=== PATIENT | female | born 1950 | race Caucasian/White ===

== ENCOUNTER 2017-03-07 17:00 | Inpatient (IN) | payer MEDICARE, OTHER ==
[~2017-03-07] VITALS: Ht 167.6 cm; Wt 72.6 kg
[2017-03-07] MEDS ORDERED: CHRONULAC30 ML PO (17:55)
[2017-03-07] MEDS ORDERED: BACLOFEN10 MG PO (17:55)
[2017-03-07] MEDS ORDERED: BUMEX 1 MG TAB1 MG PO (17:57)
[2017-03-07] MEDS ORDERED: KLONOPIN0.5 MG PO (17:58)
[2017-03-07] MEDS ORDERED: PROTONIX FOR OR40 MG PT (17:59)
[2017-03-07] MEDS ORDERED: LOVENOX40 MG/0.4 SC (17:59)
[2017-03-07] MEDS ORDERED: MIRALAX17 GM PO (18:00)
--- NOTE | 2017-03-07 18:00 | NUR ---
ADMIT TO [facility] FROM [facility]. PT IS SIMPSON X4. SPEECH CLEAR. FOLLOWS COMMANDS AND REQUESTS. TRACH IS CAPPED. SHE HAS A WEAK, NON PRODUCTIVE COUGH NOTED. SHE IS NPO. HAS PEG IN MIDDLE ABD WITH INTACT SKIN AROUND INSERTION SITE. HAS SUPRAPUBIC CATH TO MID-LOWER ABD. INSERTION SITE IS CLEAN AND NO S/S INFECTION NOTED TO SUPRAPUBIC CATH SITE. URINE IS CLOUDY. SHE DENIES PAIN. SCALP: BACK OF HEAD 5.5X10 CM CIRCULAR (JULIO OF) THICK NON STAGEABLE AREA. HAS HAIR IN IT. COCCYX: 9X3 CM STAGE III TO COCCYX WITH UNEVEN BORDERS. NO DRAINAGE NOTED. LEFT KNEE: LATERAL LEFT KNEE 0.5 CM NON STAGEABLE BLACK CAHTO
[2017-03-07] MEDS ORDERED: ARTIFICIAL TEA3.5 G2 EACH EYE (18:02)
[2017-03-07] MEDS ORDERED: ASPIRIN81 MG PO (18:03)
[2017-03-07] MEDS ORDERED: COPAXONE INJ20 MG/ML SQ (18:04)
[2017-03-07] MEDS ORDERED: COREG 3.1253.125 MG PO (18:06)
[2017-03-07] MEDS ORDERED: SEROQUEL50 MG PO (18:08)
[2017-03-07] MEDS ORDERED: GUAIFENESI100 MG/5 M PO (18:09)
[2017-03-07] MEDS ORDERED: LEXAPRO20 MG PO (18:10)
[2017-03-07] MEDS ORDERED: NYSTATIN ORAL SU5 ML PO (18:11)
[2017-03-07] MEDS ORDERED: CIPRO500 MG PO (18:12)
[2017-03-07 19:03] VITALS: BP 141/66; BMI 25.8
[2017-03-07 21:00] VITALS: BP 113/59
--- NOTE | 2017-03-07 21:15 | NUR ---
MARISELA NOT GIVEN DT NOT HAVING ANY.
--- NOTE | 2017-03-08 01:08 | NUR ---
RESTING IN BED WITH EYES CLOSED. NO S/S OF DISTRESS OBSERVED. HIGH FLOW OXYGEN AT 7L PER TRACH COLLAR. PEG TUBE CHECKED FOR PATENCY AND RUNNING AT 57CC/HR. CALL LIGHT IN REACH AND OVERBED TABLE IN REACH.
[2017-03-08 06:59] VITALS: Ht 167.6 cm; Wt 72.6 kg
--- NOTE | 2017-03-08 07:43 | NUR ---
Nutrition Note: Full nutrition assessment is in process intervention. Pt currently on Osmolite 1.0 @ 57 ml/hr. She is receiving Ever BID. Noted pt with stage III to coccyx. Will put order in to increase TF to Osmolite 1.0 @ 65 ml/hr. Water flushes 15 ml/hr. Continue Ever BID via PEG. Flush PEG with 60 ml water before and after bolus. RD following.
[2017-03-08 07:47] LABS: CALC OSMOLALITY 283 mosm/kg (275-300); CALCIUM 9.1 mg/dL (8.5-10.1); CARBON DIOXIDE 32.6 mmol/L (21.0-32.0); CHLORIDE - SERUM 101 mmol/L (98-107); CREATININE - SERUM 0.6 mg/dL (0.6-1.3); GLUCOSE 113 mg/dL (74-106); SODIUM 139 mmol/L (136-145); UREA NITROGEN 27 mg/dL (7-18); eGFR NON AFRICAN AMERICAN > 90 mL/min (90-120)
[2017-03-08 07:48] LABS: BASOPHILS 0.4 % (0-2); EOSINOPHILS 5.7 % (0-7); HEMATOCRIT 29.3 % (36.0-48.0); HEMOGLOBIN 9.1 g/dL (12-16); IMMATURE GRANULOCYTES 0.8 % (0-5); LYMPHOCYTES 36.7 % (15-50); MCH 29.4 pg (26.0-34.0); MCHC 31.1 g/dL (31.0-37.0); MCV 94.5 fL (80.0-100.0); MEAN PLATELET VOLUME 9.9 fL (7.4-10.4); MONOCYTES 9.2 % (2-11); NEUTROPHILS 47.2 % (40-80); PLATELET COUNT 336 10x3/uL (130-400); RDW 15.7 % (11.5-14.5); WBC 7.7 10x3/uL (4.8-10.8)
--- NOTE | 2017-03-08 08:00 | NUR ---
RESTING QUIETLY IN BED.CL IN REACH.
[2017-03-08 08:13] VITALS: BP 127/48
--- NOTE | 2017-03-08 08:15 | NUR ---
PT RESTING IN BED WITH EYES OPEN CALL LIGHT IN REACH WILL MONITER
--- NOTE | 2017-03-08 11:35 | NUR ---
Wound care consult: Pt has an unstageable pressure injury on occiput (right side) measuring 7cm x 7cm x black/brown escar. The escar is dry. Treatment prior to this admission was to apply hydrogel to site to moisturize and soften the escar. I recommend continuing with this treatment. Sacrum has 5cm x 7cm stage 3 pressure injury. The wound bed is pink and white with peeling periwound. There is a small to moderate serous drainage with no odor. Surrounding skin is red and does fletcher, but slowly. Pt states it is very tender. Prior treatment was medihoney. Recommend biosorb gelling dressing covered with tielle plus. Changing every other day. There is a blanchable red areas on ankles and a scabs on knees. Requested an air overlay mattress for pt's bed. She will need to be assisted with turning/repositioning q2h while in bed. And repositioned hourly when up in wheel chair. Wound care will continue to monitor.
--- NOTE | 2017-03-08 14:26 | NUR ---
PT RESTING IN BED WITH EYES OPEN CALL LIGHT IN REACH NO PROBLEMS WILL MONITER
--- NOTE | 2017-03-08 17:47 | NUR ---
CARE TEAM MEETING: PATIENT NEW TO UNIT AND WILL BE RA AT NEXT MEETING.
--- NOTE | 2017-03-08 18:27 | NUR ---
PT RESTING IN BED WITH EYES OPEN CALL LIGHT IN REACH NO PROBLEMS WILL MONITER
--- NOTE | 2017-03-08 19:50 | NUR ---
PT. IN BED WITH HOB UP TO RECEIVE TUBEFEEDING. PT. IS ALSO ON A FIRST STEP MATTRESS DUE TO HER SKIN CONDITION. ASSESSMENT COMPLETED. [facility] PRESENT AND IS GOING TO TEACH MYSELF AND A FEMALE FAMILY MEMBER ON HOW TO GIVE PT. ICE CHIPS AND THEN HAVE PT. TO COUGH. PROCESS COMPLETED AND PT. WAS ABLE TO TAKE THE ICE CHIPS WITHOUT ANY S/S ASPIRATION AND DID HAVE A PRODUCTIVE COUGH AFTER WORKING SEVERAL TIMES BEFORE SHE GOT ENOUGH STRENGTH TO COUGH HARD ENOUGH TO BRING SECRETIONS UP. CALL LIGHT REMAINS WITHIN REACH.
[2017-03-08 21:00] VITALS: BP 113/75
--- NOTE | 2017-03-08 23:16 | NUR ---
PT. IN BED WITH HOB UP 40 DEGREES FOR T.F., PT. LEANING TO THE LEFT WITH EYES CLOSED AND RESP. EVEN. PT. REMAINS ON A FIRST STEP MATTRESS FOR HER SKIN. SUPRAPUPIC CATHETER DRAINING TO BSD WITHOUT PROBLEMS. TF INFUSING WITHOUT ANY ALARMS. CALL LIGHT REMAINS WITHIN REACH.
--- NOTE | 2017-03-09 03:10 | NUR ---
PT. IN BED WITH HOB UP FOR TF. EYES CLOSED AND RESP. EVEN. TF INFUSING VIA PUMP WITHOUT ANY ALARMS. SUPRAPUBIC CATHETER DRAINING TO BSD WITHOUT ANY PROBLEMS. FIRST STEP MATTRESS ON WITHOUT ANY ALARMS. CALL LIGHT REMAINS WITHIN REACH.
--- NOTE | 2017-03-09 07:45 | NUR ---
LYING IN BED RESTING QUIETLY. NO S/SX OF RESPIRATORY DISTRESS. TRACH COLLAR CLEAN AND SECURE WITH MIST FLOWING. TF RUNNING 65ML/HR WITH 15ML/HR H2O OSMOLITE 1.0. CALL LIGHT WITHIN REACH, BED ALARM ON, SR X3. WILL CONTINUE TO MONITOR.
[2017-03-09 08:50] VITALS: BP 127/52
--- NOTE | 2017-03-09 10:29 | NUR ---
SITTING UP IN BED READING NEWSPAPER. DENIES ANY NEEDS OR PAIN. TRACH CAPPED. PERSONAL ITEMS WITHIN REACH. MABRY PATENT AND WITHOUT KINKS. CALL LIGHT WITHIN REACH, BED ALARM ON. WILL CONTINUE TO MONITOR
--- NOTE | 2017-03-09 14:03 | NUR ---
SITTING UP IN W/C VISITING WITH FAMILY. DENIES ANY PAIN OR NEEDS. W/C BRAKES LOCKED, CALL LIGHT WITHIN REACH, BOX ALARM ON, PERSONAL ITEMS WITHIN REACH. WILL CONTINUE TO MONITOR
--- NOTE | 2017-03-09 16:44 | NUR ---
PERFORMED SUPRAPUBIC CATH CARE, INCONTIENT CARE D/T SMALL BOWEL INCONTINENCE. CHANGED SACRUM DRESSING, CLEANSED WITH WOUND CARE CLEANSER PATTED DRY, APPLIED BIOSORB GELLING OVER WOUND BED AND COVERED WITH SECONDARY DRESSING TIELLE PLUS. APPLIED DRAIN GAUZE TO PEG SITE. CALL LIGHT WITHIN REACH, BED LOW, ALARM ON, PERSONAL ITEMS IN REACH. WILL CONTINUE TO MONITOR
--- NOTE | 2017-03-09 17:23 | NUR ---
SITTING UP IN BED VISITING FAMILY. DENIES ANY NEEDS OR PAIN. NO S/SX OF RESPIRATORY DISTRESS. CALL LIGHT WITHIN REACH, BED ALARM ON, PERSONAL ITEMS WITHIN REACH, BED LOW. WILL CONTINUE TO MONITOR
--- NOTE | 2017-03-09 17:56 | NUR ---
WASHED HAIR AND WOUND AREA WITH SOAP, RISED THOROUGLY H2O, APPLIED THIN LAYER OF HYDROGEL TO ESCHAR AREA. TOLERATED WELL. CALL LIGHT WITH IN REACH, BED LOW, ALARM ON. WILL CONTINUE TO MONITOR
--- NOTE | 2017-03-09 18:00 | NUR ---
VISITING WITH FAMILY.CL IN REACH.
--- NOTE | 2017-03-09 19:25 | NUR ---
PT. IN BED ON FIRST STEP MATTRESS. FEMALE FAMILY MEMBER PRESENT AND VISITING. ASSESSMENT COMPLETED. NO VOICED NEEDS AT THIS TIME AND SHE HAS HER CALL LIGHT WITHIN REACH.
[2017-03-09 21:37] VITALS: BP 119/63
--- NOTE | 2017-03-09 23:09 | NUR ---
PT. IN BED WITH HOB UP FOR TF AND HER EYES ARE CLOSED AND RESP. EVEN. PT. REMAINS ON FIRST STEP MATTRESS. MABRY TO BSD WITHOUT PROBLEMS. TF INFUSING VIA PUMP WITHOUT ANY ALARMS. CALL LIGHT REMAINS WITHIN REACH.
--- NOTE | 2017-03-10 03:08 | NUR ---
PT. IN BED WITH HOB UP AT LEAST 40 DEGREES SHE IS RECEIVING TF AT 65CC/HR VIA PUMP WITHOUT ANY ALARMS. EYES ARE CLOSED AND RESP. EVEN. MABRY TO BSD WITHOUT PROBLEMS. FIRST STEP MATTRESS FUNCTIONING WITHOUT ALARMS ALSO. CALL LIGHT WITHIN REACH.
[2017-03-10 05:58] LABS: BASOPHILS 0.1 % (0-2); EOSINOPHILS 2.5 % (0-7); HEMATOCRIT 28.6 % (36.0-48.0); IMMATURE GRANULOCYTES 0.4 % (0-5); LYMPHOCYTES 28.3 % (15-50); MCH 29.7 pg (26.0-34.0); MCHC 31.5 g/dL (31.0-37.0); MCV 94.4 fL (80.0-100.0); MEAN PLATELET VOLUME 9.4 fL (7.4-10.4); MONOCYTES 7.9 % (2-11); NEUTROPHILS 60.8 % (40-80); PLATELET COUNT 344 10x3/uL (130-400); RBC 3.03 10x6/uL (4.00-5.40); RDW 15.7 % (11.5-14.5); WBC 7.6 10x3/uL (4.8-10.8)
[2017-03-10 06:28] LABS: CALC OSMOLALITY 276 mosm/kg (275-300); CARBON DIOXIDE 33.8 mmol/L (21.0-32.0); CHLORIDE - SERUM 98 mmol/L (98-107); CREATININE - SERUM 0.6 mg/dL (0.6-1.3); GLUCOSE 130 mg/dL (74-106); POTASSIUM - SERUM 3.8 mmol/L (3.5-5.1); SODIUM 135 mmol/L (136-145); UREA NITROGEN 26 mg/dL (7-18); eGFR NON AFRICAN AMERICAN > 90 mL/min (90-120)
--- NOTE | 2017-03-10 07:40 | NUR ---
RESTING QUIETLY IN BED. CALL LIGHT IN REACH. BED IN LOWEST POSITION.
[2017-03-10 08:15] VITALS: BP 140/50
--- NOTE | 2017-03-10 10:02 | NUR ---
Nutrition Follow Up: Pt stated that she was doing okay. When asked if she would like to try bolus TF pt replied "that would be great." Noted pt still has ~500 ml TF currently in bag infusing. Spoke with nursing - pt is to finish current TF bag. Pt to start bolus TF in the morning. Nursing agreed. +BM 03/09/17. Wt stable. Labs reviewed. Meds noted including Bumex. Will put order in to d/c continuous TF on 03/10/17 after current bag is empty. Begin bolus TF on 03/11/17 with current schedule: 0800: 1.5 cans 1200: 2 cans 1600: 1.5 cans 2000: 1.5 cans Flush PEG with 30 ml before and after each bolus. Continue Ever BID with 60 ml flush before and after each bolus. If pt is unable to tolerate bolus feeds, d/c bolus and resume continuous TF @ 65 ml/hr. RD following.
--- NOTE | 2017-03-10 10:04 | NUR ---
PATIENT REMAINS IN CONTACT ISOLATION FOR URINE. MABRY CATH PATENT. DRAINING CLEAR YELLOW URINE. G TUBE FEEDING RUNNING AT 65CC/HR. OSOMOLITE. DIET CONSULT DONE. FEEDINGS TO BE CHANGED TO BOLUS STARTING TOMORROW.
--- NOTE | 2017-03-10 13:50 | NUR ---
PATIENT REMAINS IN CONTACT ISOLATION. VISITORS REMINDED ABOUT ISOLATION PRECAUSIONS.
--- NOTE | 2017-03-10 16:28 | NUR ---
PATIENT HELPED BACK IN BED WITH TOTAL ASST OF TWO USING A SLIDING BOARD. PATIENT REQUESTED BED MCALLISTER. SMALL BOWEL MOVEMENT. DEONNA CARE GIVEN. SHEETS ON BED CHANGED.
--- NOTE | 2017-03-10 16:52 | RHP ---
PATIENT: CONSTANTINO GUTHRIE MEDICAL RECORD: [id number] ACCOUNT: [id number] LOCATION:[facility]1109 : 46 ADMISSION DATE: 03/07/17 REHABILITATION HISTORY AND PHYSICAL EXAMINATION POST ADMISSION PHYSICIAN EXAMINATION DATE OF ADMISSION: 03/07/2017 ADMITTING DIAGNOSES: Critical illness myopathy HISTORY OF PRESENT ILLNESS: The patient is a 66-year-old female patient admitted to inpatient rehabilitation for critical illness myopathy. She was admitted to the hospital at [facility] with v fib, cardiac arrest, hypothermia, acute respiratory failure, hypoxia, sepsis and UTI. She had an estimated down time of 20 minutes with CPR. Cardiac catheterization failed to show overt coronary artery disease. Bronchoscopy did reveal aspiration of some chewing gum. On January 30, she went to the OR for trach and PEG placement. Postop in the ICU, her clinical course continued to improve. She was discharged to [facility] on February 01 for further vent weaning and care. Currently, she is awake and oriented, extubated to trach collar downsized to a #6 uncuffed Shiley trach, capped during the day and open with 28% O2 at night. Secondary to increased secretions and sleep apnea, she will require long-term trach. She failed a recent swallow eval, remains n.p.o. with continuous tube feeding and speech therapy for swallowing, strengthening, safety and dietary upgrades. Urine culture was positive for Pseudomonas and Enterococcus with more that 100,000 colony forming units. She remains on cefepime 2 grams IV q.12 hours since February 28. Previously, she was mostly in a wheelchair, but was able to stand and transfer on her own as well as ambulate a short distance around her home. Currently, she has relapsing and remitting MS, muscular atrophy with wasting, weakness proximal greater than distal and difficulty rising from bed to chair or transfers without max assist times 2. She will benefit from aggressive rehabilitation as she plans to discharge home with her family after this. COMORBIDITIES: Include sepsis, hypertension, heart failure, pneumonitis, respiratory failure, dysphagia, tracheostomy, hypothermia, status post v fib with cardiac arrest, shock liver, acute kidney injury, foreign body in the bronchus, coronary artery disease, status post trach and PEG placement, UTI, multiple sclerosis, muscle weakening, debility, aspiration, hypoxia, depression and asthma. PAST MEDICAL HISTORY: Prior to this was asthma, hypertension, incontinence of urine, MS, back injury, face and neck injury and recurrent UTI. PAST SURGICAL HISTORY: Includes a bladder suspension, hysterectomy, tonsillectomy and adenoidectomy, gastrostomy tube placed, tracheostomy and suprapubic catheter. ALLERGIES: No known drug allergies. CURRENT MEDICATIONS: Include Levaquin 500 mg daily, Protonix 40 mg daily, aspirin chewable 81 mg daily, Lovenox 40 mg subQ daily, Lexapro 20 mg daily, carvedilol 3.125 mg b.i.d., Tylenol liquid p.r.n., Seroquel 50 mg at bedtime, guaifenesin 10 cc q.4 hours p.r.n. cough, nystatin 5 cc q.i.d., Bumex 1 mg b.i.d., baclofen 10 mg t.i.d., lanolin ointment as needed, Copaxone 20 mg injection for her MS, clonazepam 0.5 mg b.i.d. and polyethylene glycol 17 grams HISTORY AND PHYSICAL [id number] CONSTANTINO GUTHRIE in 8 ounce of water daily. HABITS: No alcohol or tobacco use. FAMILY HISTORY: Noncontributory. SOCIAL HISTORY: The patient hopes to return back home with her family and get back to her prior level of functioning. At least, be able to get around in a wheelchair and transfer on her own. REVIEW OF SYSTEMS: GENERAL: Does complain of weakness. HEENT: She denies cold, cough, or congestion. CARDIOVASCULAR: Denies chest pain. PHYSICAL EXAMINATION: VITAL SIGNS: Stable, afebrile. GENERAL: A much older than stated age female, in no distress on exam. HEENT: Normocephalic and atraumatic. She does have a large ulcerative region to the back of her head, appears to be some type of pressure ulcer. LUNGS: Clear at this time. HEART: Regular rate and rhythm. ABDOMEN: Benign. EXTREMITIES: No clubbing, cyanosis, or edema. NEUROLOGIC: She is slow to mentate, but seems mostly intact. SKIN: She does have that pressure ulcer to the back of her head and also an eschar/pressure ulcer to her coccyx area. LABORATORY DATA: White count is 7.7, H&H of 9 and 29, and platelet count was noted to be 336. Her sodium is 139, potassium 4.0, BUN and creatinine of 27 and 0.6, and blood sugar is noted to be 113. 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 The patient has potential to make improvement. We instituted the following multidisciplinary therapies including, but not limited to, physical, occupational, respiratory, speech, nutritional services, prosthetics and orthotics. Given her complex condition and risk of medical complications, rehabilitative care cannot be offered at a lower level of care such as a long-term facility. PLAN: 1. Admit to [facility] rehab for intensive inpatient therapy to include the following disciplines: A. Physical therapy to improve gait, all transfer skills and bed mobility to a modified independent level. B. Occupational therapy to improve activities of daily living to a modified independent level. C. Case management to assist with discharge planning and placement options. D. Nutrition to assist with nutritional needs. E. Rehabilitation nursing to assist in monitoring the patient's underlying medical conditions and to assist with any type of bowel or bladder management. 2. The patient's current medication and medical care will be continued. 3. The patient will be placed on standard fall precautions. 4. The patient's estimated length of stay is approximately 10-14 days. HISTORY AND PHYSICAL [id number] CONSTANTINO GUTHRIE 5. Discuss this patient during care team staff meeting this week. TRANSINT:[id number] Voice Confirmation ID: [id number] DOCUMENT ID: [id number] KELSEY notes whether there has been none or any medical/functional change since admission: - See nursing initial assessment and notes for thorough skin assessment. KELSEY attests patient continues to be appropriate for IRF: - Continues to be appropriate. CRISTY FINK MD at 1652 CC: [id number] DICTATION DATE: 03/08/1731 PRODUCTION CORRUGATOR: 03/08/17 0952 ADM IN [facility] [address] [id number]
--- NOTE | 2017-03-10 19:20 | NUR ---
PT. IN BED WITH HOB UP AND IS VISITING WITH MULTIPLE FRIENDS/FAMILY. VISITORS REMINDED OF THE CONTACT ISOLATION PRECAUTIONS AND TO BE SURE AND SANITIZE THEIR HANDS UPON LEAVING THE ROOM. SON VERBALIZED UNDERSTANDING. ASSESSMENT COMPLETED. NO VOICED NEEDS. CALL LIGHT WITHIN REACH. NO ALARMS FROM FIRST STEP MATTRESS OR TF PUMP.
[2017-03-10 20:30] VITALS: BP 127/66
--- NOTE | 2017-03-10 23:10 | NUR ---
PT. IN BED WITH HOB UP AT LEAST 35 DEGREES FOR TF TO INFUSE VIA PUMP. PT. REMAINS ON A FIRST STEP MATTRESS AND NO ALARMS THIS SHIFT SO FAR. FEEDING PUMP ALSO WORKING WITHOUT ANY ALARMS. SUPRAPUBIC CATHETER DRAINING TO BSD WITHOUT PROBLEMS. PT'S EYES CLOSED AND RESP. DEEP AND EVEN. PT'S CALL LIGHT WITHIN REACH.
--- NOTE | 2017-03-11 03:00 | NUR ---
PT. IN BED WITH HOB UP FOR TF AT LEAST 35 DEGREES. KIRILL, RT HERE TO PERFORM DEEP SUCTION OF TRACH. KIRILL WAS SUCCESSFUL IN GETTING SECRETIONS OUT OF TRACH THAT PT. WASN'T ABLE TO COUGH UP. PT. RESTING AND HAS HER CALL LIGHT IS SHE NEEDS ANYTHING FURTHER. MABRY TO BSD WITHOUT PROBLEMS, TF INFUSING VIA PUMP WITHOUT ANY ALARMS AND FIRST STEP MATTRESS FUNCTIONING PROPERLY.
--- NOTE | 2017-03-11 08:02 | NUR ---
PATIENT REMAINS IN CONTACT ISOLATION FOR URINE. ALERT/ORIENT X4. PATIENT REMAINS NPO EXCEPT FOR ICE CHIPS. ON A FIRST STEP MATTRESS. CALL LIGHT WITHIN REACH. VOICES NO NEEDS AT THIS TIME.
[2017-03-11 08:36] VITALS: BP 112/57
--- NOTE | 2017-03-11 11:23 | NUR ---
PATIENT RESTING IN BED. VOICES NO NEEDS AT THIS TIME. CALL LIGHT WITHIN REACH.
--- NOTE | 2017-03-11 13:39 | NUR ---
UP WITH THERAPY AT THIS TIME. PEG FEEDING ARE BOLUS.UP FOR THERAPY. SUPRA PUBIC CATHETER PATENT AND DRAINIG GERARDO COLOR URINE TO CLOSED DRAINAGE SYSTEM. PU TO BACK OF HEAD WITH HARD ESCAR IS OPEN TO AIR.REMAINS IN ISOLATION D/T MDRO. TRACH INTACT WITH TRACH COLLAR PRESENT. REMAINS NPO.
--- NOTE | 2017-03-11 17:11 | NUR ---
G TUBE CHECKED FOR PLACEMENT. 5CC RESIDIUAL. BOLUS FEEDING GIVEN PER ORDER. PATIENT TOLERATED WELL.
[2017-03-11 19:00] VITALS: BP 97/42
--- NOTE | 2017-03-11 19:40 | NUR ---
PT NOTED LAYING IN BED ON HER RIGHT SIDE. ALERT AND ORIENTED X 3. RESTING IN A FIRST STEP MATTRESS. NOTED TO BE INC. OF A MED LOOSE BM. INC CARE GIVEN AND BED PADS CHANGED. BRIEF LEFT OFF TO ALLOW AIR TO SITE FOR THE NIGHT. SUPRA PUBIC CATHETER PATENT AND DRAINING TO A GRAVITY BAG. NECK PILLOW PLACED ON PT FOR COMFORT. FEET ELEVATED UP ON A PILLOW. VISITOR IN ROOM AT BEDSIDE. SR'S ARE UP X 3 IN BED. CALL LIGHT AND BEDSIDE TABLE ARE WITHIN EASY REACH.
--- NOTE | 2017-03-11 21:30 | NUR ---
PT IS RESTING IN BED WITH EYES OPEN. ASSISTED TO TURN AND REPOSITION. NO FURTHER NEEDS VOICED.
--- NOTE | 2017-03-11 23:07 | NUR ---
RESTING IN BED WITH EYES CLOSED.
--- NOTE | 2017-03-12 01:23 | NUR ---
RESTING IN BED WITH EYES CLOSED.
--- NOTE | 2017-03-12 02:30 | NUR ---
IN BED, EYES CLOSED. APPEARS COMFORTABLE.
--- NOTE | 2017-03-12 05:51 | NUR ---
PT RESTING IN BED WITH EYES OPEN. DENIES ANY NEEDS AT THIS TIME. TOLERATED MEDS THROUGH PEG TUBE WITHOUT DIFFICULTY. COUGHING UP SMALL AMOUNTS OF YELLOW SPUTUM. NO INCONTINENCE NOTED.
--- NOTE | 2017-03-12 08:00 | NUR ---
PATIENT REMAINS IN CONTACT ISOLATION, MDRO IN URINE. PATIENT HAS A CHRONIC MABRY CATH. DRAINING CLEAR YELLOW URINE. ON A FIRST STEP MATTRESS. NPO EXCEPT FOR ICE CHIPS. TRACH IN PLACE. PATIENT IS ALERT/ORIENT X4. USING CALL LIGHT FOR NEEDS. CALL LIGHT IN PLACE.
[2017-03-12 08:03] VITALS: BP 117/55
--- NOTE | 2017-03-12 10:15 | NUR ---
HYDROGEL APPLIED TO BACK OF PATIENTS HEAD.
--- NOTE | 2017-03-12 12:00 | NUR ---
PATIENT GIVEN BOLUS FEEDING PER G TUBE. 50CC RESIDUAL. TOLERATED FEEDING WELL
--- NOTE | 2017-03-12 14:00 | NUR ---
DRESSING TO SACRUM CHANGED. CLEANED WITH WOUND CLEANSOR. BIOSORB GELLING DRESSING APPLIED. SECONDARY DRESSING OF TIELLE PLUS APPLIED.
--- NOTE | 2017-03-12 16:43 | NUR ---
PATIENT HAS MULTIPLE VISITORS IN ROOM. ISOLATION PRECAUSIONS EXPLAINED TO VISITORS BY THIS NURSE.
--- NOTE | 2017-03-12 19:03 | NUR ---
PT RESTING IN BED WITH EYES OPEN. VISITING WITH FRIEND AT BEDSIDE. NO NEEDS VOICED. RESTING ON A 1ST STEP MATTRESS. CONTACT PRECAUTIONS OBSERVED. SR'S ARE UP X 3 IN BED. CALL LIGHT AND BEDSIDE TABLE ARE WITHIN EASY REACH.
[2017-03-12 19:17] VITALS: BP 119/65
--- NOTE | 2017-03-12 21:27 | NUR ---
PT RESTING IN BED WITH EYES OPEN. BED BATH DONE AND HAIR WASHED WITH NO RINSE SHOWER CAP. SMALL LOOSE BM NOTED. BED LINENS CHANGED. PT VERY THANKFUL.
--- NOTE | 2017-03-12 23:44 | NUR ---
RESTING IN BED WITH EYES CLOSED.
--- NOTE | 2017-03-13 00:40 | NUR ---
IN BED, EYES CLOSED. HOB UP 30 DEGREES, LYING ON AIR MATTRESS. MABRY CATH PATENT TO BSD BAG. NO DISTRESS EVIDENT.
--- NOTE | 2017-03-13 03:12 | NUR ---
RESTING IN BED WITH EYES CLOSED. NO ACUTE DISTRESS NOTED.
--- NOTE | 2017-03-13 05:48 | NUR ---
PT RESTING IN BED WITH EYES CLOSED. AWOKE EASILY TO VERBAL STIMULI. TOLERATED AM MEDS WITHOUT DIFFICULTY. NO NEEDS VOICED.
--- NOTE | 2017-03-13 08:15 | NUR ---
PT RESTING IN BED EYES CLOSED UNLABORED RESPIRATIONS NOTED WILL MONITER
[2017-03-13 09:00] VITALS: BP 130/54
--- NOTE | 2017-03-13 12:21 | NUR ---
Nutrition Follow Up: Pt stated that she was feeling better. She denied any N/V/abd pain. Pt is receiving Osmolite 1.0 - 6.5 cans/day. She is receiving Ever BID. +BM 03/12/17. Meds and labs reviewed. Rec continue current TF regimen. Rec continue Ever BID. RD following.
--- NOTE | 2017-03-13 16:29 | NUR ---
Wound care reassessment of unstageable pressure injury to right occiput. Escar is drying out and loosening around edges. Removed loose dried escar from edges. Upper edge shows bright red tissue under escar. Lower left edge has yellow slough . Nursing reports moderate drainage. Wound care will continue monitoring.
--- NOTE | 2017-03-13 18:09 | NUR ---
PT RESTING IN BED WITH EYES OPEN CALL LIGHT IN REACH WILL MONITER
--- NOTE | 2017-03-13 19:30 | NUR ---
PT. IN BED WITH HOB UP FOR COMFORT AND IS EATING ICE CHIPS SLOWLY. FEMALE FAMILY FRIEND PRESENT VISITING. PT. REMAINS ON FIRST STEP MATTRESS. SUPRAPUPIC CATHETER TO BSD WITHOUT PROBLEMS. CALL LIGHT WITHIN REACH FOR NEEDS.
[2017-03-13 20:34] VITALS: BP 121/57
--- NOTE | 2017-03-13 21:14 | NUR ---
PT IS RESTING IN BED VISITING WITH A FRIEND. ALERT AND ORIENTED X 3. DENIES ACUTE DISCOMFORT AT THIS TIME. VSS. SMALL AMOUNT OF SEROUS DRAINAGE NOTED FROM PARTIALLY DEBRIDED SCALP. PT DENIES DISCOMFORT. PT RESTING ON A 1ST STEP MATTRESS. TRACH IS INTACT. DRESSING IS CDI. PEG TUBE FEEDING DONE AND MEDS GIVEN WITHOUT DIFFICULTY. DRESSING IS CDI. SUPRAPUBIC CATH IS INTACT AND DRAINING TO A GRAVITY BAG. CONTACT PRECAUTIONS OBSERVED. SR'S ARE UP X 3 IN BED. CALL LIGHT AND BEDSIDE TABLE ARE WITHIN EASY REACH.
--- NOTE | 2017-03-14 00:06 | NUR ---
RESTING IN BED WITH EYES CLOSED.
--- NOTE | 2017-03-14 02:46 | NUR ---
RESTING IN BED WITH EYES CLOSED.
--- NOTE | 2017-03-14 08:00 | NUR ---
PATIENT REMAINS IN CONTACT ISOLATION FOR MDRO IN URINE. HAS A SUPPER PUBIC CATH. ALERT/ORIENT X4. FIRST STEP MATTRESS ON BED. CALL LIGHT WITHIN REACH. USING CALL LIGHT FOR NEEDS
[2017-03-14 08:21] VITALS: BP 135/53
--- NOTE | 2017-03-14 09:56 | NUR ---
FAMILY IN VISITING WITH PATIENT. TOLD ABOUT ISOLATION PRECAUSIONS BY THIS NURSE. FAMILY CHOICES NOT TO FOLLOW ISOLATION PRECAUSIONS.
--- NOTE | 2017-03-14 12:00 | NUR ---
G TUBE FEEDING OF OSMOLITE 1 KYLAH TWO CANS DONE. G TUBE CHEKED FOR PLACEMENT. NO RESIDUAL. PATIENT TOLERATED FEEDING WELL.
--- NOTE | 2017-03-14 15:07 | NUR ---
PATIENT SITTING UP IN WHEELCHAIR AFTER THERAPY. BACK OF HEAD CLEANED WITH WOUND CHEMICAL PRODUCTION TECHNICIAN. HYDROGEL APPLIED
--- NOTE | 2017-03-14 17:55 | NUR ---
SITTING UP EATING SUPPER. DENIES NEEDS. BED IN LOWEST POSITION.
--- NOTE | 2017-03-14 19:21 | NUR ---
PT. IN BED WITH HOB UP FOR COMFORT AND IS VISITING WITH FEMALE VISITOR. PT. STILL ON FIRST STEP AIR MATTRESS, SUPRAPUBIC CATHETER TO BSD WITHOUT PROBLEMS AND TRACH SITE WITH DRESSING AND CAPPED SO THAT PT. CAN SPEAK. CALL LIGHT WITHIN REACH.
--- NOTE | 2017-03-14 20:05 | NUR ---
REST IN BED AND LOOK AT GRANDSON'S PICTURE IN PHONE.
[2017-03-14 21:45] VITALS: BP 107/71
--- NOTE | 2017-03-15 04:08 | NUR ---
REST QUIETLY IN BED,EYE CLOSE, CALL LIGHT IN REACH.
[2017-03-15 06:15] LABS: BASOPHILS 0.2 % (0-2); EOSINOPHILS 0.9 % (0-7); HEMATOCRIT 29.5 % (36.0-48.0); HEMOGLOBIN 9.2 g/dL (12-16); IMMATURE GRANULOCYTES 0.4 % (0-5); LYMPHOCYTES 23.9 % (15-50); MCH 29.5 pg (26.0-34.0); MCHC 31.2 g/dL (31.0-37.0); MCV 94.6 fL (80.0-100.0); MEAN PLATELET VOLUME 9.8 fL (7.4-10.4); MONOCYTES 8.3 % (2-11); NEUTROPHILS 66.3 % (40-80); PLATELET COUNT 386 10x3/uL (130-400); RBC 3.12 10x6/uL (4.00-5.40); RDW 15.5 % (11.5-14.5); WBC 11.9 10x3/uL (4.8-10.8)
[2017-03-15 06:39] LABS: CALC OSMOLALITY 274 mosm/kg (275-300); CALCIUM 8.9 mg/dL (8.5-10.1); CARBON DIOXIDE 29.5 mmol/L (21.0-32.0); CHLORIDE - SERUM 98 mmol/L (98-107); CREATININE - SERUM 0.6 mg/dL (0.6-1.3); GLUCOSE 112 mg/dL (74-106); POTASSIUM - SERUM 3.8 mmol/L (3.5-5.1); SODIUM 135 mmol/L (136-145); UREA NITROGEN 23 mg/dL (7-18); eGFR NON AFRICAN AMERICAN > 90 mL/min (90-120)
--- NOTE | 2017-03-15 08:00 | NUR ---
SITTING UP IN BED.CL IN REACH.
[2017-03-15 08:17] VITALS: BP 118/48
--- NOTE | 2017-03-15 12:43 | NUR ---
G TUBE FEEDING GIVEN. PATIENT TOLERATED WELL.
--- NOTE | 2017-03-15 15:45 | NUR ---
PATIENT WORKING WITH SPEECH THERAPIST IN ROOM. HELPED TO BED BY PHYSICAL THERAPIST AND SPEECH THERAPIST. PATIENT HAD A LARGE LOOSE BOWEL MOVEMENT. THIS NURSE WITH ASST FROM ANOTHER NURSE WENT INTO ROOM AND CLEANED PATIENT. DEONNA CARE GIVEN. SUPRA PUBIC CATH REMAINS IN PLACE. THIS NUSE STAYED IN ROOM TO CLEAN ROOM UP. MULTIPLE CUPS OF FLUID IN ROOM. PATIENT IS NPO EXCEPT FOR NECTAR THICK LIQUIDS WITH SPEECH THERAPIST OR SUPERVISION FROM OTHER STAFF MEMBERS OR WHEN FAMILY IS IN ROOM TO WATCH PATIENT SWALLOW. THIS NURSE HAS CLEANED UP FOOD CONTAINORS IN ROOM X3. THIS NURSE ASKED PATIENTS FAMILY TO PLEASE REMOVE CONTAINERS WHEN THEY ARE DONE WITH THEM.
--- NOTE | 2017-03-15 19:30 | NUR ---
IN BED ON AIR OVERLAY. REMAINS ON CONTACT ISOLATION FOR MDRO IN URINE. SUPRAPUBIC CATH IS PATENT TO BSD BAG. FAMALE FAMILY MEMBER GOWNED IN ROOM. DENIES NEEDS AT PRESENT.
--- NOTE | 2017-03-15 20:20 | NUR ---
REMAINS IN BED, HOB UP 45 DEGREES. DENIES NEEDS.
[2017-03-15 22:10] VITALS: BP 116/46
--- NOTE | 2017-03-15 22:10 | NUR ---
AT 2135 PATIENT'S PEG RESIDUAL WAS 140ML. WILL DEFER SCHEDULED TF UNTIL 2300. CLEANSED PATIENT FROM SMALL AMOUNT PUDDING CONSISTENCY STOOL IN BLUE AIR PAD, AND DURING CLEANSING SHE BEGAN TO DEFECATE AGAIN. ON COMPLETION OF BM CLEANSED PATIENT OF TOTAL MODERATE AMOUNT OF BM AND REPLACE BLUE AIR PAD. GAVE PATIENT HS MEDS CRUSHED IN WATER AND STARTED TRACH COLLAR AT 28% MOISTURIZED AIR (8L AIR FLOW RATE). CONTINUES IN PARTIAL RIGHT SIDELYING POSITION. BUTTOCKS/COCCYX DRESSING REMAINS C/D/I.
--- NOTE | 2017-03-16 00:05 | NUR ---
RESTING QUIETLY IN BED, IN PARTIAL LEFT SIDELYING POSITION, HOB UP 45 DEGREES.
--- NOTE | 2017-03-16 02:30 | NUR ---
CONTINUES IN BED, EYES CLOSED. RESTING QUIETLY.
--- NOTE | 2017-03-16 06:00 | NUR ---
REMAINS IN BED, RESTING WITH EYES CLOSED. RESPIRATIONS UNLABORED.
--- NOTE | 2017-03-16 07:47 | NUR ---
SITTING UP IN BED LOOKING A NEWSPAPER. ALERT AND ORIENTED X3. DENIES ANY PAIN OR NEEDS. NO S/SX OF RESPIRATORY DISTRESS. CALL LIGHT AND PERSONAL ITEMS WITHIN REACH, BED ALARM ON, BED LOW, SR X3. WILL CONTINUE TO MONITOR
[2017-03-16 07:51] VITALS: BP 125/49
--- NOTE | 2017-03-16 07:54 | NUR ---
RESTING QUIETLY IN BED. CALL LIGHT IN REACH. BED IN LOWEST POSITION.
--- NOTE | 2017-03-16 09:59 | NUR ---
IN THERAPY GYM WITH OCCUPATIONAL AND PHYSICAL THERAPY. NO S/SX OF ACUTE DISTRESS. WILL CONTINUE TO MONITOR
--- NOTE | 2017-03-16 13:36 | NUR ---
SITTING UP IN W/C VISITING WITH FAMILY. DENIES ANY NEEDS OR PAIN. CALL LIGHT AND PERSONAL ITEMS WITHIN REACH, W/C BRAKES LOCKED. WILL CONTINUE TO MONITOR
--- NOTE | 2017-03-16 16:23 | NUR ---
REASSESSMENT SACRAL STAGE 3 PRESSURE INJURY: MEASURES 6.5CM X 8CM X 0.5CM HAVE CHANGED TO AQUACEL EXTRA D/T WOUND BED TOO MOIST. DRESSINGS WILL BE CHANGED DAILY NOW. PERIWOUND CONTINUES TO YOHAN AND IS RED. ON LEFT TROCHANTER A RED 2.5CM X 3CM RED AREA IS NOTED. IT BLANCHES. COVERED THIS RADHA DUODERM LITE AND INSTRUCTED PT TO REPOSITION HERSELF Q 2 HOURS TO DECREASE RISK OF BREAKDOWN. SHE VOICED UNDERSTANDING. WOUND CARE WILL CONTINUE TO MONITOR.
--- NOTE | 2017-03-16 17:32 | NUR ---
SITTING UP IN BED VISITING WITH FAMILY. DENIES ANY NEEDS OR PAIN. CALL LIGHT WITHIN REACH, BED ALARM ON, BED LOW. WILL CONTINUE TO MONITOR
--- NOTE | 2017-03-16 19:00 | NUR ---
IN BED. AWAKE. VISITOR AT BEDSIDE.
--- NOTE | 2017-03-16 20:20 | NUR ---
REMAINS IN BED, AWAKE. FAMILY FRIEND/EMPLOYEE VISITING AT BEDSIDE. VS AER STABLE.
--- NOTE | 2017-03-16 21:35 | NUR ---
IN BED, WAS PARTIALLY TURNED TO LEFT SIDE BY Srinivas DOHERTY LPN. CONTINUES ON AIR MATTRESS OVERLAY FOR PRESSURE RELIEF.
[2017-03-16 23:05] VITALS: BP 158/68
--- NOTE | 2017-03-16 23:05 | NUR ---
ASSESSMENT COMPLETE. HS MEDS AND TUBE FEEDING GIVEN. TOLD PATIENT I WILL LOWER HER HOB FROM 45 DEGREES AND TURN HER TO HER SIDE IN 60-90 MINUTES WE WANT HER STOMACH TO EMPTY WITHOUT RISK OF REFLUX. SAYS SHE UNDERSTANDS.
--- NOTE | 2017-03-17 00:15 | NUR ---
RESTING QUIETLY IN BED, HOB UP 45 DEGREES. APPEARS COMFORTABLE.
--- NOTE | 2017-03-17 02:15 | NUR ---
PATIENT WAS TURNED TO PARTIAL LEFT SIDELYING POSITION FOR PRESSURE RELIEF TO COCCYX. CONTINUES ON 1ST STEP AIR OVERLAY.
--- NOTE | 2017-03-17 04:40 | NUR ---
RESTING IN BED, EYES CLOSED. RESPIRATIONS UNLABORED.
--- NOTE | 2017-03-17 05:40 | NUR ---
CHECKED PEG RESIDUAL. FOUND IT TO BE 0 ML. EMPTIED 1200ML FROM CATHETER DRAINAGE BAG.
[2017-03-17 05:59] LABS: BASOPHILS 0.2 % (0-2); EOSINOPHILS 4.7 % (0-7); HEMATOCRIT 28.3 % (36.0-48.0); HEMOGLOBIN 8.8 g/dL (12-16); IMMATURE GRANULOCYTES 0.9 % (0-5); LYMPHOCYTES 37.5 % (15-50); MCH 29.1 pg (26.0-34.0); MCHC 31.1 g/dL (31.0-37.0); MCV 93.7 fL (80.0-100.0); MEAN PLATELET VOLUME 9.4 fL (7.4-10.4); MONOCYTES 10.1 % (2-11); NEUTROPHILS 46.6 % (40-80); PLATELET COUNT 383 10x3/uL (130-400); RBC 3.02 10x6/uL (4.00-5.40); RDW 15.4 % (11.5-14.5)
[2017-03-17 06:02] LABS: WBC 8.2 10x3/uL (4.8-10.8)
[2017-03-17 06:16] LABS: CALC OSMOLALITY 282 mosm/kg (275-300); CALCIUM 9.3 mg/dL (8.5-10.1); CARBON DIOXIDE 35.9 mmol/L (21.0-32.0); CHLORIDE - SERUM 98 mmol/L (98-107); CREATININE - SERUM 0.5 mg/dL (0.6-1.3); GLUCOSE 89 mg/dL (74-106); POTASSIUM - SERUM 4.1 mmol/L (3.5-5.1); SODIUM 138 mmol/L (136-145); eGFR NON AFRICAN AMERICAN > 90 mL/min (90-120)
[2017-03-17 06:26] LABS: UREA NITROGEN 34 mg/dL (7-18)
[2017-03-17 08:52] VITALS: BP 110/46
--- NOTE | 2017-03-17 11:00 | NUR ---
UP IN WC.TALITA THERAPY.
--- NOTE | 2017-03-17 12:00 | NUR ---
IN WC.UNABLE TO GIVE BOLUS FEEDING DUE TO 60 PLUS CC RESIDUAL.WILL RECHECK.
--- NOTE | 2017-03-17 12:50 | NUR ---
PATIENT ADMITTED TO REHAB FROM AN [facility]. DISCHARGE PLANS ARE FOR HER TO GO TO [facility]. WILL CONTINUE TO FOLLOW WITH PATIENT AND WILL ASSIST FAMILY WITH DISCHARGE NEEDS.
--- NOTE | 2017-03-17 13:50 | NUR ---
Nutrition Follow Up: Chart reviewed. Pt is tolerating current TF regimen of Osmolite 1.0 - 6.5 cans/d. She is receiving Ever BID to promote wound healing. +BM 03/16/17. Labs reviewed. Meds noted including Bumex. Rec continue current TF regimen. Rec continue Ever BID. Rec MV supplement. RD following.
--- NOTE | 2017-03-17 16:00 | NUR ---
FAMILY VISITING.DENIES NEEDS.
--- NOTE | 2017-03-17 16:30 | NUR ---
UNABLE TO GIVE BOLUS DUE TO RESIDUALS.WILL RECHECK .
--- NOTE | 2017-03-17 19:00 | NUR ---
PATIENT WAS BATHED AND SACRAL DRESSING AND SCRUB TOP CHANGED AFTER BM INCONTINENCE IN BED.
[2017-03-17 21:16] VITALS: BP 131/51
--- NOTE | 2017-03-17 21:35 | NUR ---
REMAINS IN BED, AWAKE. FAMILY VISITOR AT BEDSIDE.
--- NOTE | 2017-03-17 23:10 | NUR ---
ASSESSMENT, MEDS AND TUBE FEEDING COMPLETE. DENIES NEEDS.
--- NOTE | 2017-03-18 00:35 | NUR ---
PATIENT'S LINENS WERE CHANGED AROUND 2339. PATIENT NOW RESTING IN BED, EYES CLOSED HOB UP 45 DEGREES WITH PATIENT TURNED PARTIALLY TO RIGHT SIDE.
--- NOTE | 2017-03-18 02:35 | NUR ---
IN BED, EYES CLOSED. NO DISTRESS EVIDENT. HOB REMAINS UP 45 DEGREES.
--- NOTE | 2017-03-18 04:30 | NUR ---
CONTINUES IN BED, EYES CLOSED. RESTING QUIETLY.
--- NOTE | 2017-03-18 06:50 | NUR ---
MEDS AND TF COMPLETE. SUPRAPUBIC CATH CARE COMPLETE. EMPTIED 1000ML FROM CATHETER BAG.
--- NOTE | 2017-03-18 08:00 | NUR ---
POSITIONED IN BED FOR COMFORT.CL IN REACH.
[2017-03-18 09:20] VITALS: BP 106/33
--- NOTE | 2017-03-18 12:00 | NUR ---
BED BATH GIVEN AND UP OOB TO WC .CL IN REACH.
--- NOTE | 2017-03-18 16:00 | NUR ---
REMAINS UP IN WC.CL IN REACH.
--- NOTE | 2017-03-18 19:40 | NUR ---
PT. IN BED WITH HOB UP AT LEAST 35 DEGREES ALMOST ALL THE TIME THAT IS HER PREFERENCE. PT. REMAINS ON FIRST STEP MATTRESS FOR HER SKIN CONDITION. ASSESSMENT COMPLETED. NO VOICED NEEDS AT THIS TIME. SUPRAPUBIC CATHETER DRAINING INTO BSD WITHOUT PROBLEMS, PEG TUBE CLAMPED UNTIL MEDS/FEEDINGS DONE AND TRACH SITE PLACED ON TRACH COLLAR TO RECEIVE MOISTENED O2 FOR THE NIGHT. CALL LIGHT WITHIN REACH.
[2017-03-18 20:35] VITALS: BP 112/68
--- NOTE | 2017-03-18 23:25 | NUR ---
PT. IN BED WITH HOB UP FOR COMFORT AND CONTNUES TO WEAR HER NECK SUPPORT PILLOW BUT STILL LEANS TOWARDS THE LEFT. EYES CLOSED AND RESP. EVEN. CATHETER TO BSD WITHOUT PROBLEMS, TRACH COLLAR ON AND HER CALL LIGHT REMAINS WITHIN HER REACH.
--- NOTE | 2017-03-19 03:12 | NUR ---
PT. IN BED WITH HOB UP AT LEAST 35 DEGREES SHE LIKES IT. EYES CLOSED AND RESP. EVEN. SUPRAPUBIC CATHETER DRAINING INTO BSD WITHOUT PROBLEMS. TRACH REMAINS CONNECTED TO TRACH COLLAR TO RECEIVE MOISTENED AIR. CALL LIGHT REMAINS WITHIN REACH.
[2017-03-19 10:32] VITALS: BP 130/45
--- NOTE | 2017-03-19 19:25 | NUR ---
PT. IN BED WITH HOB UP FOR COMFORT AND VISITING WITH FRIEND. SUPRAPUBIC CATHETER DRAINING TO BSD WITHOUT PROBLEMS. PEG TUBE DRESSING C/D/I. TRACH SITE CLEAN WITH DRESSING. ASSESSMENT COMPLETED. NO VOICED NEEDS AT THIS TIME AND HER CALL LIGHT IS WITHIN REACH.
[2017-03-19 19:30] VITALS: BP 122/56
--- NOTE | 2017-03-19 23:18 | NUR ---
PT. IN BED WITH HOB UP FOR COMFORT WITH EYES CLOSED AND RESP. EVEN. TRACH COLLAR ON AND NO S/S DISTRESS OBSERVED. SUPRAPUBIC CATHETER DRAINING TO BSD WITHOUT PROBLEMS. PT. REMAINS ON FIRST STEP MATTRESS FOR HER SKIN CONDITION. CALL LIGHT REMAINS WITHIN REACH.
--- NOTE | 2017-03-20 03:15 | NUR ---
PT. IN BED WITH HOB UP FOR COMFORT WITH EYES CLOSED AND RESP. EVEN. TRACH COLLAR REMAINS ON, SUPRAPUBIC CATHETER DRAINING INTO BSD WITHOUT PROBLEMS. FIRST STEP MATTRESS FUNCTIONING WITHOUT ANY ALARMS. CALL LIGHT WITHIN REACH.
[2017-03-20 06:03] LABS: BASOPHILS 0.3 % (0-2); EOSINOPHILS 3.6 % (0-7); HEMATOCRIT 29.3 % (36.0-48.0); IMMATURE GRANULOCYTES 1.1 % (0-5); LYMPHOCYTES 25.3 % (15-50); MCH 28.5 pg (26.0-34.0); MCHC 30.7 g/dL (31.0-37.0); MCV 92.7 fL (80.0-100.0); MEAN PLATELET VOLUME 9.8 fL (7.4-10.4); MONOCYTES 7.9 % (2-11); NEUTROPHILS 61.8 % (40-80); PLATELET COUNT 400 10x3/uL (130-400); RBC 3.16 10x6/uL (4.00-5.40); WBC 11.4 10x3/uL (4.8-10.8)
[2017-03-20 06:20] LABS: CALC OSMOLALITY 276 mosm/kg (275-300); CALCIUM 8.9 mg/dL (8.5-10.1); CARBON DIOXIDE 31.8 mmol/L (21.0-32.0); CHLORIDE - SERUM 96 mmol/L (98-107); CREATININE - SERUM 0.7 mg/dL (0.6-1.3); GLUCOSE 105 mg/dL (74-106); POTASSIUM - SERUM 3.9 mmol/L (3.5-5.1); SODIUM 135 mmol/L (136-145); UREA NITROGEN 31 mg/dL (7-18); eGFR NON AFRICAN AMERICAN 88 mL/min (90-120)
[2017-03-20 07:54] VITALS: BP 111/51
--- NOTE | 2017-03-20 08:00 | NUR ---
PATIENT REAMINS IN CONTACT ISOLATION, URINE. SUPER PUBIC CATH IN PLACE. ALERT/ORIENT WITH SOME FORGETFULNESS. USING CALL LIGHT FOR NEEDS. CALL LIGHT WITHIN REACH
--- NOTE | 2017-03-20 10:23 | NUR ---
PATIENT IN REHAB ROOM. WORKING WITH PHYSICAL AND OCCUPATIONAL THERAPIST. DENIES ANY PAIN/DISC
--- NOTE | 2017-03-20 12:41 | NUR ---
G TUBE FEEDING HELD PER REQUEST OF SPEECH THERAPIST. SPEECH THERAPIST WORKING WITH PATIENT ON MECHANICAL SOFT DIET.
--- NOTE | 2017-03-20 17:16 | NUR ---
IN ROOM. ISOLATION PRECAUSIONS MAINTAINED. G TUBE FEEDING OSMOLITE 1CAL TOLERATED WELL. NO RESIDUAL.
--- NOTE | 2017-03-20 18:42 | NUR ---
RESTING QUIETLY IN BED. CALL LIGHT IN REACH. BED IN LOWEST POSITION.
--- NOTE | 2017-03-20 19:25 | NUR ---
PT. IN BED ON FIRST STEP MATTRESS WITH HOB UP FOR COMFORT. ASSESSMENT COMPLETED. NO VOICED NEEDS AT THIS TIME AND HER CALL LIGHT IS WITHIN REACH. SUPRAPUBIC CATHETER DRAINING TO BSD WITHOUT PROBLEMS. PT'S FEMALE SITTER IS PRESENT AND HAS NO QUESTIONS AT THIS TIME.
[2017-03-20 19:45] VITALS: BP 119/70
--- NOTE | 2017-03-20 20:00 | NUR ---
RECEIVED CALL FROM DR. FINK RE: KIAH. STATES THAT IT IS ALRIGT FOR IT TO STAY ON WHILE PT. IS RECEIVING TRACH COLLAR HUMIDIFIED OX. I INFORMED PT. AND HER FEMALE CAREGIVER.
--- NOTE | 2017-03-20 23:05 | NUR ---
PT. IN BED WITH HOB UP FOR COMFORT AND LYING ON HER LEFT SIDE. EYES CLOSED AND RESP. EVEN. CATH DRAINING TO BSD WITHOUT PROBLEMS. FIRST STEP MATTRESS ON WITHOUT PROBLEMS. CALL LIGHT REMAINS WITHIN REACH.
--- NOTE | 2017-03-21 00:30 | NUR ---
PT. IN BED WITH HOB UP FOR COMFORT AND IS WEARING HER NECK SUPPORT COLLAR ALSO. TRACH COLLAR HUMIDIFIER ON WITHOUT ANY PROBLEMS. CATHETER DRAINING TO BSD WITHOUT PROBLEMS AND NO ALARMS FROM FIRST STEP MATTRESS. CALL LIGHT WITHIN REACH.
[2017-03-21 09:00] VITALS: BP 114/56
--- NOTE | 2017-03-21 10:15 | NUR ---
PT RESIDUAL 10ML. TF GIVEN WITH AM MEDICATIONS. PT IN THERAPY TOLERATING WELL. WCTM.
--- NOTE | 2017-03-21 12:15 | NUR ---
PT RESIDUAL GREATER THAN 120ML. TF HELD.
--- NOTE | 2017-03-21 13:31 | NUR ---
PT RESIDUAL STILL GREATER THAN 120ML AT THIS TIME. TF HELD.
--- NOTE | 2017-03-21 14:25 | NUR ---
Nutrition Follow Up: Per nursing pt with increased residuals today. SLOTTER OPERATOR HELPER plans to do mech soft dinner tray with pt tonight. Bolus feeding may be held until after speech therapy. Pt currently receiving 6.5 cans/d of Osmolite 1.0. She is receiving Ever BID. +BM 03/21/17. Labs reviewed. Meds noted including Bumex. Rec continue current TF regimen as tolerated. Rec continue Ever BID. RD following.
--- NOTE | 2017-03-21 18:42 | NUR ---
HELD LUNCH TF SO PT WOULD BE HUNGRY FOR DINNER. [facility], TOOK PT DINNER TRAY FOR EVAL. GAVE 1/2 OF REGULARLY SCHEDULED 1700 TF AT THIS TIME.
[2017-03-21 19:00] VITALS: BP 117/71
--- NOTE | 2017-03-21 19:30 | NUR ---
IN BED, AWAKE. BOAT JOINER GOWNED AND GLOVED, VISITING AT BEDSIDE. HELPS WITH MANY OF PATIENT'S NEEDS. PATIENT HAS NO C/O AT THIS TIME.
--- NOTE | 2017-03-21 20:05 | NUR ---
CLEANSED PATIENT AFTER REMOVING HER SCRUB PANTS FOR HS AND FINDING HER WITH A SMALL SOFT BM INCONTINENCE IN HER BRIEF. SACRAL DRESSING REMAINS INTACT AND UNSOILED BY STOOL. PERFORMED SUPRAPUBIC URINARY CATH CARE.
--- NOTE | 2017-03-21 22:10 | NUR ---
ASSESSMENT WAS PERFORMED AT 2004. PEG RESIDUAL >100ML. WILL DEFER TF FOR AT LEAST AN HOUR. GAVE PATIENT HS MEDS CRUSHED IN CHOCOLATE PUDDING. WAS ABLE TO SWALLOW SUCCESSFULLY WITH LONG DELAY WITH EACH 1/2 TSP OF PUDDING/MEDICATION MIX. TOOK NYSTATIN SWISH AND SWALLOW SUCCESSFULLY, AGAIN WITH LONG DELAY. CHANGED PEG DRESSING AND TRACH DRESSING. SCANT DRY DRAINAGE ON EACH. REPAIRER SASH AND DOOR WAS TO BATHE PATIENT, BUT VISITOR INFORMED HER THAT SHE HAD ALREADY DONE SO EARLIER THIS EVENING. LINENS WERE ALREADY CHANGED EARLIER.
--- NOTE | 2017-03-21 23:50 | NUR ---
RESTING QUIETLY IN BED, HOB UP 45 DEGREES AFTER RECEIVING DEFERRED 2100-SCHEDULED TF @ 2320. NO DISTRESS NOTED.
--- NOTE | 2017-03-22 02:00 | NUR ---
CONTINUES IN BED, EYES CLOSED. HOB UP 45 DEGREES. LYING IN PARTIAL LEFT SIDELYING POSITION.
--- NOTE | 2017-03-22 04:45 | NUR ---
EMPTIED SUPRAPUBIC CATH DRAINAGE BAG OF 750ML ABOUT 30 MINUTES AGO. PATIENT WAS AWAKE. PERFORMED TRACH CARE, REMOVING A NEAR COMPLETE OBSTRUCTIVE CLOG FROM HER INNER CANNULA USING STERILE PROCEDURE. PATIENT HAS BEEN IN NO DISTRESS DUE TO THE OBSTRUCTION SHE IS BREATHING WITHOUT DIFFICULTY THROUGH HER MOUTH AND NOSE ON ROOM AIR AND CONTINUES WITH PASSEY-KATHERINE SPEECH VALVE IN PLACE 05/12.
--- NOTE | 2017-03-22 06:35 | NUR ---
GAVE PATIENT SCHEDULED PROTONIX GRANULES, AND BUMEX TAB (CRUSHED IN CHOCOLATE PUDDING). SWALLOWED WITHOUT DIFFICULTY.
[2017-03-22 06:48] LABS: BASOPHILS 0.4 % (0-2); EOSINOPHILS 4.1 % (0-7); HEMATOCRIT 27.8 % (36.0-48.0); HEMOGLOBIN 8.9 g/dL (12-16); LYMPHOCYTES 29.6 % (15-50); MCH 29.9 pg (26.0-34.0); MCV 93.3 fL (80.0-100.0); MEAN PLATELET VOLUME 9.9 fL (7.4-10.4); MONOCYTES 7.5 % (2-11); NEUTROPHILS 57.4 % (40-80); PLATELET COUNT 407 10x3/uL (130-400); RBC 2.98 10x6/uL (4.00-5.40); RDW 15.6 % (11.5-14.5); WBC 9.5 10x3/uL (4.8-10.8)
[2017-03-22 07:02] LABS: CALC OSMOLALITY 276 mosm/kg (275-300); CALCIUM 8.9 mg/dL (8.5-10.1); CARBON DIOXIDE 31.6 mmol/L (21.0-32.0); CHLORIDE - SERUM 99 mmol/L (98-107); CREATININE - SERUM 0.5 mg/dL (0.6-1.3); GLUCOSE 82 mg/dL (74-106); SODIUM 137 mmol/L (136-145); UREA NITROGEN 25 mg/dL (7-18); eGFR NON AFRICAN AMERICAN > 90 mL/min (90-120)
[2017-03-22 07:30] VITALS: BP 125/57
--- NOTE | 2017-03-22 08:35 | NUR ---
PT AM MEDS ADMINISTERED CRUSED VIA PEGTUBE. AM TF ADMINISTERED AT THIS TIME. RESIDUAL PRIOR TO TF 5MLS. PT HAD INCONT BM. PT CLEANSED AND DRESSED FOR THERAPY. WCTM.
--- NOTE | 2017-03-22 12:52 | NUR ---
PT RESIDUAL GREATER THAN 120ML AT THIS TIME. TF HELD.
--- NOTE | 2017-03-22 13:25 | NUR ---
PT LUNCH TF HELD. A[facility] IN ROOM WATCHING PT EAT LUNCH TRAY.
--- NOTE | 2017-03-22 16:50 | NUR ---
CARE TEAM MEETING: SPOUSE AND SON ATTENDED MEETING AND REFERRAL HAS BEEN SENT TO [facility] . DR. KEENAN HERE TO EVAL PATIENT FOR TRACH REMOVAL. WILL CONTINUE TO FOLLOW WITH PATIENT. TENATIVE DISCHARGE DATE IS 03/24/17.
--- NOTE | 2017-03-22 17:12 | NUR ---
PT TF HELD. PT EATING SOLID FOOD WITH FAMILY.
--- NOTE | 2017-03-22 18:43 | NUR ---
PT SITTING UP IN ROOM, FAMILY AT BEDSIDE. DENIES NEEDS. WCTM.
--- NOTE | 2017-03-22 19:15 | NUR ---
BEDSIDE HANDOFF AND REPORT COMPLETE. DAY SHIFT NURSE NOW GIVING 1700-SCHEDULED TF RESIDUAL WAS TOO HIGH EARLIER AND PATIENT HAD BEEN EATING SOFT FOOD, SUPERVISED, AT THE TIME.
[2017-03-22 19:30] VITALS: BP 113/47
--- NOTE | 2017-03-22 20:00 | NUR ---
REMAINS IN BED, HOB UP 45 DEGREES. FAMILY MEMBER AT BEDSIDE.
--- NOTE | 2017-03-22 22:25 | NUR ---
EMPTIED 1000ML FROM URINE DRAINAGE BAG AT BEDSIDE TO FACILITATE REMOVAL OF PATIENT'S SCRUB PANTS FOR THE NIGHT. CHANGED GLOVES AND CHECKED PATIENT'S PEG RESIDUAL AND FOUND IT TO BE IN EXCESS OF 100ML. WILL FURTHER DEFER 2100- SCHEDULED OSMOLITE TF DUE TO EXCESSIVE RESIDUAL.
--- NOTE | 2017-03-22 23:00 | NUR ---
GAVE PATIENT SCHEDULED PO MEDS CRUSHED IN VANILLA PUDDING WHICH SHE TOOK WITH LONG SWALLOWING DELAY BUT NO SX COUGHING OR CHOKING. ASSESSMENT ALSO COMPLETE. REPOSITIONED PATIENT HIGHER UP IN BED FOR COMFORT AND TO PROMOTE GASTRIC EMPTYING. TURNED HER TO PARTIAL LEFT SIDELYING POSITION. FAMILY MEMBER NOW DEPARTING.
--- NOTE | 2017-03-23 00:30 | NUR ---
PEG RESIDUAL 40ML NOW. GAVE PATIENT PREVIOUSLY-DEFERRD OSMOLITE TF WITH MARISELA X1 PACKET MIXED IN, PER PEG. FLUSHED PEG. HOB UP 45 DEGREES AFTER REPOSITIONING PATIENT PRIOR TO TF.
--- NOTE | 2017-03-23 02:30 | NUR ---
RESTING QUIETLY AFTER RECENTLY RECEIVING TREATMENT BY R/T.
--- NOTE | 2017-03-23 04:45 | NUR ---
PATIENT IN BED, RESTING QUIETLY.
--- NOTE | 2017-03-23 06:30 | NUR ---
SCHEDULED MEDS GIVEN TO PATIENT. ROBITUSSIN DM WAS GIVEN PER TUBE AND TUBE FLUSHED DUE TO DYSPHAGIA PRECAUTIONS. DENIES CURRENT NEEDS.
[2017-03-23 07:25] LABS: MAGNESIUM - SERUM 2.2 mg/dL (1.8-2.4); PHOSPHOROUS 4.3 mg/dL (2.5-4.9)
[2017-03-23 07:53] VITALS: BP 115/49
--- NOTE | 2017-03-23 08:30 | NUR ---
PT RESTING IN BED WITH EYES OPEN CALL LIGHT IN REACH WILL MONITER
--- NOTE | 2017-03-23 12:45 | NUR ---
Nutrition Follow Up: Pt reported that she is thirsty but feeling okay. Spoke with RESEARCH METHODOLOGIST who stated that she can have something to drink - nectar thick liquids. RESEARCH METHODOLOGIST said that pt is doing well with solids and liquids; asked this RD to advance diet to mechanical soft with nectar thick liquids. Will order mechanical soft diet with nectar thick liquids. If pt eats <50% of meal, bolus 1 can of Osmolite 1.0. Continue Ever BID via PEG. RD following.
--- NOTE | 2017-03-23 15:32 | NUR ---
REFERRAL WAS FAXED TO [facility] AND AT THIS TIME THEY HAVE DECLINED PATIENT FOR ADMISSION. WILL CONTINUE TO FOLLOW WITH PATIENT AND WILL NOTIFIY DR. FINK.
--- NOTE | 2017-03-23 15:46 | NUR ---
SITTING UP IN CHAIR.PT ASSISTING BACK TO BED.FAMILY AT BEDSIDE.
--- NOTE | 2017-03-23 16:25 | NUR ---
PT RESTING IN BED WITH EYES OPEN CALL LIGHT IN REACH WILL MONITER
--- NOTE | 2017-03-23 19:30 | NUR ---
IN BED, AWAKE. DENIES NEEDS.
--- NOTE | 2017-03-23 21:50 | NUR ---
REMAINS IN BED, A&O X4. CATTLE PRODUCERS REPORTS SHE PERFORMED SUPRAPUBIC CATH CARE AROUND 2129. PATIENT DENIES CURRENT NEEDS.
[2017-03-23 23:50] VITALS: BP 132/65
--- NOTE | 2017-03-23 23:50 | NUR ---
ASSESSMENT COMPLETE. TOOK MEDS CRUSHED IN VANILLA PUDDING. CONTINUES WITH SIGNIFICANT SWALLOWING DELAY, BUT SWALLOWS SUCCESSFULLY WITHOUT COUGHING OR CHOKING. SCHEDULED OSMOLITE 1.0 TF BOLUS OF 1.5 CANS WITH A PACKET OF MARISELA GIVEN WITH 150ML H2O FLUSH. REPOSITIONED PATIENT HIGH POSSIBLE IN BED WITH HOB UP 45 DEGREES. PILLOWS UNDER LEGS FOR COMFORT.
--- NOTE | 2017-03-24 02:10 | NUR ---
GAVE PATIENT MONTYDARLING DM LIQUID, 10ML PER PEG AND FLUSHED PEG. DEFERRED IT EARLIER WHEN SHE FELL ASLEEP AROUND 0005.
--- NOTE | 2017-03-24 04:40 | NUR ---
RESTING QUIETLY, EYES CLOSED. SUPRAPUBIC CATH OUTPUT IS 1200ML.
[2017-03-24 06:08] LABS: BASOPHILS 0.1 % (0-2); HEMATOCRIT 27.3 % (36.0-48.0); HEMOGLOBIN 8.5 g/dL (12-16); IMMATURE GRANULOCYTES 0.7 % (0-5); LYMPHOCYTES 23.8 % (15-50); MCH 28.9 pg (26.0-34.0); MCHC 31.1 g/dL (31.0-37.0); MCV 92.9 fL (80.0-100.0); MEAN PLATELET VOLUME 9.5 fL (7.4-10.4); MONOCYTES 5.5 % (2-11); NEUTROPHILS 66.9 % (40-80); PLATELET COUNT 398 10x3/uL (130-400); RBC 2.94 10x6/uL (4.00-5.40); RDW 15.2 % (11.5-14.5)
[2017-03-24 06:15] LABS: WBC 13.7 10x3/uL (4.8-10.8)
[2017-03-24 06:41] LABS: CALC OSMOLALITY 279 mosm/kg (275-300); CALCIUM 9.2 mg/dL (8.5-10.1); CARBON DIOXIDE 33.2 mmol/L (21.0-32.0); CHLORIDE - SERUM 97 mmol/L (98-107); CREATININE - SERUM 0.4 mg/dL (0.6-1.3); GLUCOSE 123 mg/dL (74-106); POTASSIUM - SERUM 3.4 mmol/L (3.5-5.1); SODIUM 136 mmol/L (136-145); UREA NITROGEN 31 mg/dL (7-18); eGFR NON AFRICAN AMERICAN > 90 mL/min (90-120)
--- NOTE | 2017-03-24 06:55 | NUR ---
GAVE PATIENT SCHEDULED MEDS. DENIES NEEDS.
--- NOTE | 2017-03-24 07:00 | NUR ---
RESTING QUIETLY IN BED. CALL LIGHT IN REACH. BED IN LOWEST POSITION.
--- NOTE | 2017-03-24 08:00 | NUR ---
PT RESTING IN BED WITH EYES OPEN CALL LIGHT IN REACH WILL MONITER
--- NOTE | 2017-03-24 11:12 | NUR ---
PATIENT DISCHARGING TO [facility]. NO DME OR HOME HEALTH NEEDED AT THIS TIME. PATIENT CHOICE FORM FOR SNF AND IMFMF FORM SIGNED, EXPLAINED AND FILED IN CHART. DR. KEENAN 06/20/17 @ 2:00, AN APPOINTMENT WITH DR. FINK WILL BE MADE AT TIME OF DISCHARGE FROM FACILITY. FAMILY AT BEDSIDE . PATIENT WILL DISCHARGE TODAY
--- NOTE | 2017-03-24 12:00 | NUR ---
PT RESTING IN BED WITH EYES OPEN CALL LIGHT IN REACH WILL MONITER
--- NOTE | 2017-03-24 15:30 | NUR ---
PT DISCHARGED TO [facility] REPORT CALLED DISCHARGE SUMMARY AND DISCHARGE MEDS GIVEN TO DRIVE PT LEFT VIA WHEELCHAIR TOLERATED TRANSFER WELL
--- NOTE | 2017-05-31 13:18 | DS ---
PATIENT:CONSTANTINO GUTHRIE :46 MEDICAL RECORD: [id number] DISCHARGE SUMMARY ADMISSION DATE: 03/07/17 DISCHARGE DATE: 03/24/17 DISCHARGE DATE: 03/24/2017 from inpatient rehab. PRIMARY DIAGNOSIS: Decreased functional ability and ability to provide activities of daily living secondary to critical illness myopathy. SECONDARY DIAGNOSES: 1. She is status post cardiac arrest. 2. Relapsing remitting multiple sclerosis. 3. Sacral decubitus. 4. 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 5. Asthma. 6. Neurogenic bladder. 7. Acute respiratory failure with tracheostomy. 8. Obstructive sleep apnea, not on CPAP. 9. Depression. 10. Hypertension. 11. Congestive heart failure. CONSULTS THIS HOSPITALIZATION: 1. Urology with Prasad Henning MD 2. Pulmonary with Nam Rogers MD HOSPITAL COURSE: Full H&P is located elsewhere on the chart on this 66-year-old female who was admitted to inpatient rehab for physical therapy and occupational therapy to improve gait, transfer skills, bed mobility, and activities of daily living to a modified independent level. She was evaluated by PT and OT and their plans of care were followed. She was also seen by speech therapy and underwent a modified barium swallow after tracheostomy was decannulated revealing small amounts of aspiration with thin liquids. She required usp care for observation and assessment, medication administration as well as wound care with sacral decubitus. She had a PEG tube with tube feeding and was on Levaquin for treatment of UTI as well as cefepime. She did have a positive sputum culture for pseudomonas during this hospital stay. Electrolytes were managed by protocol, labs were monitored. She was seen by urology and had change out of the suprapubic catheter. Pulmonary was consulted with request to decannulate the tracheostomy. She did tolerate capping for 48 hours, trach was decannulated prior to discharge. She was cooperative with therapies with some progress towards goals. She was still requiring 2-person transfers at the time of discharge. She was considered stable for discharge on 03/24/2017. DISCHARGE MEDICATIONS: As per discharge medication reconciliation. DISCHARGE DISPOSITION: The patient is discharged to [facility] where she will continue her physical therapy and occupational therapy. She will continue current diet and level of activity and will follow up with primary care and specialist as directed. She will follow with the biomedical engineering supervisor at the senior care until discharge from that facility. At least 30 minutes was spent on this discharge activity. TRANSINT:[id number] Voice Confirmation ID: [id number] DOCUMENT ID: [id number] DISCHARGE SUMMARY REPORT [id number] CONSTANTINO GUTHRIE Dictated By: ARMANDO DUPONT I have interviewed/examined the above patient and agree with these documented findings. CRISTY FINK MD at 1318 at 0939 CC: [id number] DICTATION DATE: 05/27/17 1018 SALESPERSON FASHION ACCESSORIES: 05/27/17 1358 DIS IN 03/24/17 [facility] [address] [place] [address]
== END 2017-03-24 16:33 | DRG 91 ==
LOC: D.REHAB 17:00
PROVIDERS: Internal Medicine Pulmonary Disease; ADMIT Emergency Medicine
DX: G72.81 Critical illness myopathy (principal); A41.9 Sepsis, unspecified organism; J18.9 Pneumonia, unspecified organism; K72.00 Acute and subacute hepatic failure without coma; J96.01 Acute respiratory failure with hypoxia; I50.23 Acute on chronic systolic (congestive) heart failure; N17.9 Acute kidney failure, unspecified; N39.0 Urinary tract infection, site not specified; R13.10 Dysphagia, unspecified; Z93.0 Tracheostomy status; T17.59 Other foreign object in bronchus; I25.10 Atherosclerotic heart disease of native coronary artery without angina pectoris; G35 Multiple sclerosis; R53.81 Other malaise; J45.909 Unspecified asthma, uncomplicated; F32.9 Major depressive disorder, single episode, unspecified; I11.0 Hypertensive heart disease with heart failure

== ENCOUNTER 2017-12-19 13:14 | Inpatient (IN) | payer MEDICARE, OTHER ==
[~2017-12-19] VITALS: Ht 167.6 cm; Wt 65.1 kg
[~2017-12-19 13:14] MED LIST: ARTIFICIAL TEA3.5 G2 EACH EYE; ASPIRIN81 MG PO; BACLOFEN10 MG PO; BUMEX 1 MG TAB1 MG PO; CHRONULAC30 ML PO; CIPRO500 MG PO; COPAXONE INJ20 MG/ML SQ; COREG 3.1253.125 MG PO; GUAIFENESI100 MG/5 M PO; KLONOPIN0.5 MG PO; LEXAPRO10 MG PO; LOVENOX40 MG/0.4 SC; MIRALAX17 GM PO; NYSTATIN ORAL SU5 ML PO; PROTONIX FOR OR40 MG PT; SEROQUEL50 MG PO
[2017-12-19 15:24] LABS: BASOPHILS 0.2 % (0-2); EOSINOPHILS 0.5 % (0-7); HEMATOCRIT 31.8 % (36.0-48.0); HEMOGLOBIN 10.4 g/dL (12-16); IMMATURE GRANULOCYTES 0.3 % (0-5); LYMPHOCYTES 15.5 % (15-50); MCH 29.2 pg (26.0-34.0); MCHC 32.7 g/dL (31.0-37.0); MCV 89.3 fL (80.0-100.0); MEAN PLATELET VOLUME 9.7 fL (7.4-10.4); MONOCYTES 4.5 % (2-11); RBC 3.56 10x6/uL (4.00-5.40); RDW 15.4 % (11.5-14.5); WBC 17.3 10x3/uL (4.8-10.8)
[2017-12-19 15:42] LABS: PLATELET COUNT 282 10x3/uL (130-400)
[2017-12-19 15:53] LABS: APTT 33.9 SECONDS (22.8-39.4); INR 1.15 (0.85-1.17); PROTIME 14.3 SECONDS (11.6-15.0)
[2017-12-19 16:18] LABS: ALBUMIN 2.3 g/dL (3.4-5.0); ALKALINE PHOSPHATASE 83 U/L (46-116); ALT (SGPT) 29 U/L (10-68); BILIRUBIN - TOTAL 0.25 mg/dL (0.2-1.3); CALC OSMOLALITY 285 mosm/kg (275-300); CALCIUM 8.3 mg/dL (8.5-10.1); CARBON DIOXIDE 29.1 mmol/L (21.0-32.0); CHLORIDE - SERUM 106 mmol/L (98-107); CREATININE - SERUM 0.4 mg/dL (0.6-1.3); GLUCOSE 92 mg/dL (74-106); POTASSIUM - SERUM 3.8 mmol/L (3.5-5.1); PROTEIN - SERUM 6.5 g/dL (6.4-8.2); SODIUM 140 mmol/L (136-145); UREA NITROGEN 31 mg/dL (7-18); eGFR NON AFRICAN AMERICAN > 90 mL/min (90-120)
[2017-12-19 16:25] LABS: CKMB 1.7 U/L (0.0-3.6); CREATINE KINASE 55 UL (21-215); TROPONIN-I < 0.017 ng/mL (0.000-0.060)
[2017-12-19 17:10] LABS: APPEARANCE CLEAR (CLEAR); COLOR YELLOW (YELLOW)
[2017-12-19 17:13] LABS: BILIRUBIN NEGATIVE (NEGATIVE); GLUCOSE NEGATIVE (NEGATIVE); KETONE NEGATIVE (NEGATIVE); NITRITE NEGATIVE (NEGATIVE); PROTEIN NEGATIVE (NEGATIVE); UROBILINOGEN NORMAL (NORMAL)
[2017-12-19 17:14] LABS: BACTERIA FEW /hpf (NONE SEEN); EPITHELIAL CELLS 0-5 /hpf (0-5); RED CELLS - URINE 0-5 /hpf (0-5); WHITE CELLS - URINE 0-5 /hpf (0-5)
[2017-12-19 21:34] VITALS: BP 105/37
[2017-12-19] MEDS ORDERED: METAMUCIL1042 GM PO (22:28)
[2017-12-19 23:17] VITALS: BP 112/47; BMI 21.0
[2017-12-20] VITALS: BP 112/47
[2017-12-20 04:00] VITALS: BP 121/68
[2017-12-20 05:52] LABS: BASOPHILS 0.3 % (0-2); EOSINOPHILS 3.5 % (0-7); HEMATOCRIT 32.8 % (36.0-48.0); HEMOGLOBIN 10.6 g/dL (12-16); IMMATURE GRANULOCYTES 0.2 % (0-5); LYMPHOCYTES 22.3 % (15-50); MCH 28.6 pg (26.0-34.0); MCHC 32.3 g/dL (31.0-37.0); MCV 88.6 fL (80.0-100.0); MEAN PLATELET VOLUME 9.8 fL (7.4-10.4); NEUTROPHILS 69.7 % (40-80); PLATELET COUNT 293 10x3/uL (130-400); RDW 15.4 % (11.5-14.5)
[2017-12-20 05:58] LABS: WBC 10.9 10x3/uL (4.8-10.8)
[2017-12-20 06:34] LABS: ALBUMIN 2.3 g/dL (3.4-5.0); ALKALINE PHOSPHATASE 80 U/L (46-116); ALT (SGPT) 25 U/L (10-68); BILIRUBIN - TOTAL 0.29 mg/dL (0.2-1.3); CALC OSMOLALITY 287 mosm/kg (275-300); CALCIUM 8.4 mg/dL (8.5-10.1); CARBON DIOXIDE 31.9 mmol/L (21.0-32.0); CHLORIDE - SERUM 109 mmol/L (98-107); CREATININE - SERUM 0.3 mg/dL (0.6-1.3); GLUCOSE 88 mg/dL (74-106); POTASSIUM - SERUM 3.7 mmol/L (3.5-5.1); PROTEIN - SERUM 6.5 g/dL (6.4-8.2); SODIUM 145 mmol/L (136-145); eGFR NON AFRICAN AMERICAN > 90 mL/min (90-120)
[2017-12-20 06:36] LABS: UREA NITROGEN 13 mg/dL (7-18)
[2017-12-20 09:16] VITALS: BP 113/46
[2017-12-20 12:22] VITALS: BP 110/68
[2017-12-20 13:15] VITALS: Ht 167.6 cm; Wt 65.1 kg
[2017-12-20] MEDS ORDERED: NEURONTIN 400400 MG PO (13:35)
[2017-12-20] MEDS ORDERED: NORVASC2.5 MG PO (13:36)
[2017-12-20] MEDS ORDERED: CALTRATE 600 M600 M1 PO (13:41)
[2017-12-20] MEDS ORDERED: VITAMIN D5000 UNIT PO (13:42)
[2017-12-20 16:30] VITALS: BP 133/61
[2017-12-20 20:00] VITALS: BP 109/47
[2017-12-21 06:11] VITALS: BP 141/46
[2017-12-21 06:12] LABS: BASOPHILS 0.4 % (0-2); EOSINOPHILS 6.3 % (0-7); HEMATOCRIT 32.8 % (36.0-48.0); HEMOGLOBIN 10.7 g/dL (12-16); IMMATURE GRANULOCYTES 0.1 % (0-5); LYMPHOCYTES 37.5 % (15-50); MCH 29.2 pg (26.0-34.0); MCHC 32.6 g/dL (31.0-37.0); MCV 89.4 fL (80.0-100.0); MEAN PLATELET VOLUME 9.9 fL (7.4-10.4); MONOCYTES 6.9 % (2-11); NEUTROPHILS 48.8 % (40-80); PLATELET COUNT 283 10x3/uL (130-400); RBC 3.67 10x6/uL (4.00-5.40); RDW 15.3 % (11.5-14.5)
[2017-12-21 06:20] LABS: WBC 7.1 10x3/uL (4.8-10.8)
[2017-12-21 06:47] LABS: ALBUMIN 2.3 g/dL (3.4-5.0); ALKALINE PHOSPHATASE 74 U/L (46-116); ALT (SGPT) 22 U/L (10-68); BILIRUBIN - TOTAL 0.18 mg/dL (0.2-1.3); CALC OSMOLALITY 279 mosm/kg (275-300); CALCIUM 8.5 mg/dL (8.5-10.1); CARBON DIOXIDE 28.3 mmol/L (21.0-32.0); CHLORIDE - SERUM 108 mmol/L (98-107); CREATININE - SERUM 0.3 mg/dL (0.6-1.3); GLUCOSE 94 mg/dL (74-106); POTASSIUM - SERUM 3.9 mmol/L (3.5-5.1); PROTEIN - SERUM 6.5 g/dL (6.4-8.2); SODIUM 141 mmol/L (136-145); UREA NITROGEN 10 mg/dL (7-18); eGFR NON AFRICAN AMERICAN > 90 mL/min (90-120)
[2017-12-21 08:52] VITALS: BP 134/66
[2017-12-21 12:00] VITALS: BP 152/97
[2017-12-21 21:27] VITALS: BP 130/55
[2017-12-22 02:11] VITALS: BP 144/58
[2017-12-22 04:00] VITALS: BP 135/70
[2017-12-22 06:19] LABS: BASOPHILS 0.5 % (0-2); EOSINOPHILS 5.1 % (0-7); IMMATURE GRANULOCYTES 0.2 % (0-5); LYMPHOCYTES 27.2 % (15-50); MCH 28.6 pg (26.0-34.0); MCHC 32.4 g/dL (31.0-37.0); MCV 88.1 fL (80.0-100.0); MEAN PLATELET VOLUME 9.9 fL (7.4-10.4); MONOCYTES 6.7 % (2-11); NEUTROPHILS 60.3 % (40-80); PLATELET COUNT 323 10x3/uL (130-400); WBC 8.3 10x3/uL (4.8-10.8)
[2017-12-22 06:33] LABS: ALBUMIN 2.7 g/dL (3.4-5.0); ALKALINE PHOSPHATASE 82 U/L (46-116); BILIRUBIN - TOTAL 0.22 mg/dL (0.2-1.3); CALCIUM 8.8 mg/dL (8.5-10.1); CARBON DIOXIDE 30.2 mmol/L (21.0-32.0); CHLORIDE - SERUM 103 mmol/L (98-107); GLUCOSE 97 mg/dL (74-106); POTASSIUM - SERUM 4.2 mmol/L (3.5-5.1); PROTEIN - SERUM 7.3 g/dL (6.4-8.2); SODIUM 139 mmol/L (136-145)
[2017-12-22 06:34] LABS: ALT (SGPT) 33 U/L (10-68); CALC OSMOLALITY 279 mosm/kg (275-300); CREATININE - SERUM 0.4 mg/dL (0.6-1.3); UREA NITROGEN 17 mg/dL (7-18); eGFR NON AFRICAN AMERICAN > 90 mL/min (90-120)
[2017-12-22 08:39] VITALS: BP 148/67
[2017-12-22 11:45] VITALS: BP 134/56
[2017-12-22] MEDS ORDERED: FLORAJEN3 CAPS460 MG PO (15:17)
[2017-12-22] MEDS ORDERED: OMNICEF300 MG PO (15:18)
[2017-12-22] MEDS ORDERED: DIFLUCAN100 MG PO (15:18)
[2017-12-22 15:55] VITALS: BP 138/62
== END 2017-12-22 17:36 | disposition home or self-care (01) | DRG 689 ==
LOC: D.ER 13:14 → D.M2 18:22 → D.EDHOLD 18:22 → D.M2 21:02 → D.SDCHOLD 12-22 15:07 → D.M2 12-22 15:12
PROVIDERS: Family Medicine; Family Medicine Adult Medicine
DX: N39.0 Urinary tract infection, site not specified (principal); L89.324 Pressure ulcer of left buttock, stage 4; L89.314 Pressure ulcer of right buttock, stage 4; G35 Multiple sclerosis; I10 Essential (primary) hypertension; Z74.01 Bed confinement status; J32.9 Chronic sinusitis, unspecified; E86.0 Dehydration

== ENCOUNTER → 2018-12-21 18:35 | Outpatient (CLI) | payer MEDICARE ==
[2017-12-20 13:15] VITALS: BMI 20.9
[~2018-12-21 18:35] MED LIST changes: +CALTRATE 600 M600 M1 PO; +DIFLUCAN100 MG PO; +FLORAJEN3 CAPS460 MG PO; +METAMUCIL1042 GM PO; +NEURONTIN 400400 MG PO; +NORVASC2.5 MG PO; +OMNICEF300 MG PO; +VITAMIN D5000 UNIT PO
[2018-12-21 18:53] LABS: APPEARANCE CLEAR (CLEAR); BILIRUBIN NEGATIVE (NEGATIVE); COLOR YELLOW (YELLOW); GLUCOSE NEGATIVE (NEGATIVE); KETONE NEGATIVE (NEGATIVE); NITRITE NEGATIVE (NEGATIVE); PROTEIN NEGATIVE (NEGATIVE); UROBILINOGEN NORMAL (NORMAL)
[2018-12-21 18:58] LABS: EPITHELIAL CELLS 0-5 /hpf (0-5); RED CELLS - URINE 0-5 /hpf (0-5)
[2018-12-21 18:59] LABS: AMORPHOUS SEDIMENT >1+ /lpf (NONE SEEN); BACTERIA FEW /hpf (NONE SEEN)
== END | disposition home or self-care (01) ==
LOC: D.LABREF 18:35
PROVIDERS: ATTEND Urology
DX: Z43.5 Encounter for attention to cystostomy (principal); Z87.440 Personal history of urinary (tract) infections

== ENCOUNTER 2020-10-06 15:33 | Emergency (ER) | payer MEDICARE ==
[~2020-10-06] VITALS: Ht 167.6 cm; Wt 61.4 kg
[2020-10-06 15:38] VITALS: Ht 167.6 cm; Wt 61.4 kg
[2020-10-06 18:54] VITALS: BP 128/62
== END 2020-10-06 18:58 | disposition home or self-care (01) ==
LOC: D.ER 15:33
DX: S46.002A Unspecified injury of muscle(s) and tendon(s) of the rotator cuff of left shoulder, initial encounter (principal); M79.602 Pain in left arm; G89.29 Other chronic pain; I10 Essential (primary) hypertension; I25.2 Old myocardial infarction; M54.9 Dorsalgia, unspecified; M54.2 Cervicalgia; X58.XXXA Exposure to other specified factors, initial encounter